=== PATIENT | female | born 2000 | race Caucasian/White ===

== ENCOUNTER → 2021-04-05 11:33 | Outpatient (CLI) | payer OTHER, SELFPAY ==
--- NOTE | ~2021-04-05 | XR_ITS ---
EXAMINATION: XR chest 2V DATE: 04/05/2021 11:56 INDICATION: Acute bronchitis and cough TECHNIQUE: PA and lateral views of the chest were obtained. COMPARISON: Chest radiograph dated 12/14/2010 FINDINGS: Lungs are well expanded but remain clear with no focal airspace opacities, pulmonary edema, pleural e ffusion or pneumothorax. No evident bronchial wall thickening. The cardiomediastinal silhouette is no rmal. Visualized bones and soft tissues are unremarkable. IMPRESSION: 1. Normal chest radiograph. Reviewed, dictated and finalized at location B. [facility] IMPRESSION: 1. Normal chest radiograph.
== END ==
PROVIDERS: PCP Family Medicine; Visit Provider Family Medicine
DX: J20.9 Acute bronchitis, unspecified (principal)
CPT/HCPCS: 71046